=== PATIENT | female | born 1940 | race American Indian/Alaskan Native ===

== ENCOUNTER 2016-04-30 10:16 | Day surgery (SDC) | payer MEDICARE ==
[~2016-04-30 10:16] MED LIST: ANCEF/STERILE WATER 2 GM/20 ML 2 GM/20 ML SYRINGE IV NR; NACL 0.9% 1000 ML 1,000 ML IV SCH
[2016-04-30] MEDS ORDERED: VERSED ONE (12:06)
[2016-04-30] MEDS ORDERED: ANCEF/STERILE WATER 2 GM/20 ML 2 GM/20 ML SYRINGE IV ONE (12:06)
[2016-04-30] MEDS ORDERED: SUBLIMAZE ONE (12:06)
[2016-04-30] MEDS ORDERED: NACL 0.9% 250ML 250 ML ONE (12:07)
[2016-04-30] MEDS ORDERED: HEPARIN/NS 5000 UNIT/500ML(CATH LAB) 1,000 ML IR ONE (12:07)
[2016-04-30] MEDS: XYLOCAINE 1%/ EPI 1:100,000 INFILTRATI ONE ×3 (12:28→13:39)
[2016-04-30] MEDS: HEPARIN 10,000 UNITS/10 ML ONE ×3 (13:11→14:27)
[2016-04-30] MEDS ORDERED: HEPARIN/NS 5000 UNIT/500ML(CATH LAB) 500 ML IR ONE (14:24)
[2016-04-30] MEDS ORDERED: WATER FOR INJ (PF) 10 ML ONE (14:40)
[2016-04-30] MEDS ORDERED: CATHFLO ONE (14:41)
--- NOTE | 2016-04-30 15:42 | Operative Report ---
Operative Report Operative Report: EXAM: 1. Ultrasound-guided access of the right arm brachial basilic AV fistula in the perianastomotic location towards the venous outflow 2. Ultrasound-guided access of the right arm brachial basilic AV fistula in the mid basilic vein towards the anastomosis 3. Placement of a 6 American sheath 4. Foreign body wire retrieval with a 6-10 mm ensnare 5. Ultrasound-guided access of the right arm AV fistula in the mid basilic vein towards the venous outflow 6. Placement of a 7 American sheath 7. Selection of the right innominate vein with angiography 8. Angioplasty of the right innominate vein and subclavian vein with a 12 mm angioplasty balloon 9. Angioplasty of the thrombosed axillary vein stent to the venous sheath with an 8 mm angioplasty balloon 10. Trerotola mechanical thrombectomy of the AV fistula with subsequent Emi thrombectomy towards the venous outflow 10. Ultrasound-guided access of the right arm AV fistula in the distal basilic vein towards the anastomosis 11. Angioplasty of the perianastomotic portion of the AV fistula with an 8 mm angioplasty balloon 12. Selection of the brachial artery with angiography 13. Emi thrombectomy of the anastomosis 14. Angioplasty of the anastomosis towards the proximal brachial with a 5 mm angioplasty balloon 15. Angioplasty of the perianastomotic portion of the AV fistula and the venous outflow with an 8 mm angioplasty balloon 16. Angiography of the distal brachial artery 17. Secondary mechanical thrombectomy with a 6 American AngioJet in the distal brachial artery and the proximal radial artery and common interosseous ulnar a artery trunk 18. Secondary aspiration thrombectomy with a 6 American guide catheter in the distal brachial artery and proximal radial and common interosseous/ulnar artery trunk 19. Angioplasty of the anastomosis towards the distal brachial artery with a 5 mm angioplasty balloon DATE: 04/30/16 SPORTS ANALYST: GEOFFREY WEEMS MD INDICATION: End-stage renal disease with thrombosed brachial basilic AV fistula MEDICATIONS: Please see nursing report for full details. DEVICES: 6-10 mm ensnare device 12 mm angioplasty balloon 8 mm angioplasty balloon 5 mm angioplasty balloon Trerotola mechanical thrombectomy device 6 Fr angiojet AVX CONTRAST: Please see seed analysis laboratory assistant report for full details. PROCEDURE: The procedure was discussed with the patient and the risks, benefits, and alternatives were discussed with the patient. Informed consent was obtained. The patient was transported into the angiography suite in stable condition and placed on the angiographic table. The left arm was assessed under real-time ultrasound which demonstrated a thrombosed right arm AV brachiobasilic AVF. The patient was prepped and draped in a sterile fashion. Lidocaine was used to anesthetize the skin. Under ultrasound guidance, the perianastomotic portion of the AV fistula was punctured with the needle towards the venous limb. I attempted to pass a 0.018 inch wire, but this would not easily passed through the AV fistula. I reattempted this multiple times but again could not pass the wire. I attempted to use a V 18 wire, but the end of the V 18 wire became entangled and broke off in the AV fistula. Under ultrasound guidance, the midportion of the AV fistula was punctured towards the anastomosis. 0.018 inch wire was passed through the needle into the area and anastomotic portion of the AV fistula which was then exchanged for transitional dilator. Wire was exchanged for a 0.035 inch Craig wire. Transitional dilator was exchanged for 6 American short sheath. 6 American ensnare device was advanced over the Bentson wire and used to snare the broken wire in the AV fistula. This was removed as a unit. The sheath was then closed with a 4-0 Vicryl suture as this sheath was not helpful for the procedure. Under ultrasound guidance, the AV fistula was punctured at the midportion of the AV fistula with the needle pointing towards the venous limb. 0.018 inch wire was advanced through the needle and this was exchanged for a transitional dilator. The inner dilator and wire were removed and a 0.035 inch Craig wire was advanced through the transitional dilator. The dilator was exchanged for a 7 American short sheath. Angled catheter was advanced over the wire and the wire was advanced into the inferior vena cava under fluoroscopic guidance. Then the wire was removed and the Angled catheter was used to perform a pullback venogram. Digital subtraction venography was performed in the right brachiocephalic vein which demonstrated moderate diffuse narrowing of the right brachiocephalic vein and part of the central subclavian vein. 12 mm angioplasty balloon was advanced over the wire and used to perform angioplasty of the right innominate vein and central subclavian vein. Digital subtraction angiography demonstrates minimal residual narrowing of the right subclavian vein and innominate vein. The catheter was pulled back until clot was encountered in the axillary vein stent. Catheter was exchanged for an 8 mm balloon and the venous limb was sequentially venoplastied from the axillary vein stent to the sheath. Trerotola thrombectomy device was used multiple times through the venous limb. Trerotola device was then removed. Angled catheter and Craig wire were negotiated into the inferior vena cava. Wire was exchanged for Amplatz wire. The Emi balloon was used to sweep from the sheath to the central veins. The arm was then punctured towards the arterial anastomosis under ultrasound guidance. 0.018 inch wire was advanced through the needle and exchanged for transitional dilator. The inner dilator and wire were removed and a 0.035 inch Craig wire was advanced to the transitional dilator. The dilator was exchanged for 6 American short sheath. The angled catheter was advanced over the 0.035 wire and the wire was advanced into the [place] brachial artery in a retrograde fashion. Digital subtraction angiography was performed which demonstrated sluggish flow in the distal brachial artery near the anastomosis with patency of the brachial artery proximal and distal to the sluggish area. Emi catheter was inflated and use to sweep the anastomosis multiple times, pulling the plug towards the venous limb. Blood was aspirated from both sheaths. Emi catheter was exchanged for the angled catheter and digital subtraction angiography was performed. This demonstrated patency of the brachial artery proximal and distal to the anastomosis with resolution of the sluggish flow to the anastomosis. There was moderate narrowing of the anastomosis and some moderate nonflow limiting thrombus in the AV fistula with some moderate narrowing in the AV fistula. Fistulogram was performed through sheath pointed towards the venous anastomosis. This demonstrated moderate narrowing in the distal basilic vein. The rest of the venous outflow included the stented segment was widely patent. 5 mm angioplasty balloon was used to perform angioplasty at the anastomosis towards the proximal brachial artery. 8 mm angioplasty balloon was used to perform angioplasty of the distal basilic vein. Angioplasty was then performed with an 8 mm angioplasty balloon of the AV fistula from the period anastomotic portion to the midportion of the basilic vein. Digital subtraction angiography demonstrated resolution of the narrowings at these areas with excellent flow through the AV fistula and through the inflow from the proximal brachial artery. There were some sluggish flow in the distal brachial artery. The distal brachial artery was selected and digital subtraction angiography was performed demonstrating a thrombus in the distal brachial artery near the forearm, proximal radial artery, and in the common interosseous ulnar artery trunk. 6 American AngioJet was advanced over the wire and used to perform thrombectomy at these locations at the distal brachial artery, proximal radial artery, and common interosseous ulnar artery trunk. This was performed multiple times. 6 American MPA guide was advanced over the wire and used to perform aspiration thrombectomy. Digital subtraction angiography demonstrated residual thrombus at this location. 6 mg of tPA was injected into the thrombus. 5 mm angioplasty balloon was advanced over the wire and used to perform angioplasty at the anastomosis towards the distal brachial artery. After angioplasty was performed, manual compression was held at the proximal brachial artery as the forearm was manually compressed in order to back bleed the clot towards the graft. Digital subtraction angiography was performed demonstrating resolution of the entirety of the clot. The radial artery was the dominant flow to the hand and promptly filled the hand and was patent. The interosseous artery was patent. The distal brachial artery was patent. The common interosseous ulnar artery trunk was patent. The ulnar artery was intermittently opacified with contrast, but was mostly occluded. I determining the intervention was complete and there was an excellent thrill in the AV access. The patient could move her fingers, denied hand pain, and her baseline right hand numbness did not change. All the wires were removed. 4-0 Vicryl sutures were used to close the fistula access sites. Dermabond was applied. Pressure was held until hemostasis was achieved. The patient was then transferred to the outpatient recovery area. FINDINGS: Please see procedure noted above. IMPRESSION: Successful thrombectomy of the AV fistula with central vein angioplasty and peripheral vein angioplasty with foreign body retrieval of a fragmented wire and secondary successful thrombectomy of a thrombus in the distal brachial artery, proximal radial artery, and common interosseous ulnar artery trunk.
--- NOTE | 2016-04-30 16:54 | Short Stay Summary ---
Short Stay Documentation Date of service: 04/30/16 Narrative H&P: 76 year old female with right upper extremity AV access thrombosis requiring declot. - History Principal diagnosis: av malfunction H&P: obtained from office - Allergies and Medications Current Medications: Allergies povidone-iodine [From Betadine] Adverse Reaction (Verified 11/17/13 09:52) Rash soap [From Betadine] Adverse Reaction (Verified 11/17/13 09:52) Rash Home Medications Medication Instructions Recorded Confirmed Last Taken Type Atenolol 50 mg PO DAILY 11/17/13 04/30/16 04/30/16 History Folic Acid/Vit Bcomp,C [Dialyvite 1 tab PO DAILY 11/17/13 04/30/16 04/29/16 History Tablet] Furosemide 40 mg PO DAILY 11/17/13 04/30/16 04/29/16 History Insulin Lispro [HumaLOG VIAL] 100 unit SUB-Q PRN PRN 11/17/13 04/30/16 04/29/16 History Lisinopril 20 mg PO DAILY 11/17/13 04/30/16 04/30/16 History Simvastatin 20 mg PO DAILY 11/17/13 04/30/16 04/29/16 History Ergocalciferol (Vitamin D2) 400 unit PO DAILY 04/30/16 04/30/16 04/29/16 History [Vitamin D] HYDROcodone/APAP 5-325 [[place] 1 - 2 each PO Q6HR PRN #60 tablet 04/30/16 Unknown Rx 5/325] Insulin Detemir [Levemir Flextouch] 5 units SQ QHS 04/30/16 04/30/16 04/29/16 History Lidocain2.5%/Prilocai2.5% [Emla] 5 gm TP PRN PRN #1 tube 04/30/16 Unknown Rx Active Medications Cefazolin Sodium (Ancef/Sterile Water 2 Gm/20 Ml) 2 gm in 20 mls @ 80 mls/hr IV PREOP NR PRN Reason: Protocol Stop: 04/30/16 23:00 Last Admin: 04/30/16 12:25 Dose: 20 mls Sodium Chloride (Nacl 0.9% 1000 Ml) 1,000 mls @ 42 mls/hr IV DIRECT YINKA - Physical exam General appearance: no acute distress Lungs: Normal air movement Gastrointestinal: normal Extremities: abnormal (nonpalpable right ulnar or radial ; no thrill in RUE av fistula) - Brief post op/procedure progress note Date of procedure: 04/30/16 Pre-op diagnosis: avf thrombosis Post-op diagnosis: same Procedure: declot, avf thrombectomy, angioplasty, foreign body retrieval, secondary arterial thrombectomy Anesthesia: local (w/ conscious sedation) Surgeon: GEOFFREY WEEMS Estimated blood loss: minimal Condition: stable - Hospital course Hospital course: tolerated procedure well. no hand pain. no motor dysfunction. stable right hand numbness, unchanged from pre-procedure. has some pain at the access sites of her AVF. - Disposition Condition at discharge: Stable Disposition: DISCHARGED TO HOME OR SELFCARE - Discharge Diagnoses (1) Malfunction of arteriovenous shunt Status: Acute Qualifiers: Encounter type: E Short Stay Discharge Plan Activity: advance as tolerated Weight Bearing Status: Weight Bear as Tolerated Diet: renal Wound: keep clean and dry Follow up with: STAR CABRERA MD [Primary Care Provider] - 7 Days Prescriptions: HYDROcodone/APAP 5-325 [[place] 5/325] 1 - 2 each PO Q6HR PRN #60 tablet PRN Reason: Pain Lidocain2.5%/Prilocai2.5% [Emla] 5 gm TP PRN PRN #1 tube PRN Reason: pain
[2016-04-30 17:30] VITALS: BP 104/65
--- NOTE | 2016-04-30 17:44 | Vascular Lab Report ---
MISCELLANEOUS VESSEL IDENTIFICATION: The arteriovenous access was identified in the right upper extremity and under real-time ultrasound guidance was cannulated. IMPRESSION: Successful ultrasound guided cannulation of the arteriovenous access site.
== END 2016-04-30 17:30 | disposition home or self-care (01) ==
LOC: OPU 10:16
PROVIDERS: ATTEND Radiology Diagnostic Radiology
DX: T82.868A Thrombosis due to vascular prosthetic devices, implants and grafts, initial encounter (principal); Z79.899 Other long term (current) drug therapy; Y83.2 Surgical operation with anastomosis, bypass or graft as the cause of abnormal reaction of the patient, or of later complication, without mention of misadventure at the time of the procedure
CPT/HCPCS: 36415; 36905; 36907; 37197; 37246; 76937; 82962; 84132; C1725; C1751; C1757; C1769; C1773; C1894; J0690; J1644; J2250; J2997; J3010; J7050; 35475; 75962; Q9967